=== PATIENT | female | born 1995 | race Two or more races ===

== ENCOUNTER 2016-11-08 14:48 | Emergency (ER) | payer SELFPAY ==
[~2016-11-08] VITALS: Ht 162.6 cm; Wt 63.5 kg
[2016-11-08 15:40] LABS: APPEARANCE,URINE CLOUDY; KETONES,URINE 1+ (NEGATIVE); LEUKOCYTE ESTERASE ,URINE 3+ (NEGATIVE); NITRITE,URINE NEGATIVE (NEGATIVE); PH,URINE 5 (4.5-8.0); PROTEIN,URINE 3+ (NEGATIVE); UROBILINOGEN,URINE NORMAL MG/DL (0.0-1.0)
[2016-11-08] MEDS ORDERED: Phenazopyridine 200mg tab ORAL ONE (15:45)
[2016-11-08 15:53] LABS: BACTERIA,URINE FEW /HPF; RBC,URINE 60-80 /HPF (0 - 2); SQUAMOUS EPITHELIAL CELL,UR FEW /LPF (NONE/OCC)
[2016-11-08 15:55] VITALS: BP 114/73
--- NOTE | 2016-11-08 15:58 | Emergency Room Report ---
History of Present Illness General Chief Complaint: Abdominal Pain Source: Patient Present Illness HPI 21 YO Female presents to the ED c/o Left flank pain and dysuria progressive x 3 days with chills. Denies , denies abdominal pain, diarrhea/ constipation. pt. reports recently helping her to move a heavy TV. denies trauma or fall otherwise. denies hematuria, states she is on her period right now. denies frequency, or N/V. pt has been taking oral medication Motrin for fevers and reports that they subside easily. Denies CP, Palpitations, LOC, AMS, dizziness, Changes in Vision, Sensation, paresthesias, or a sudden severe headache. Allergies: Coded Allergies: No Known Allergies (Unverified , 11/08/16) Patient History Past Medical History: see triage record Past Surgical History: none Now: No Reviewed Nursing Documentation: PMH: Agreed, PSxH: Agreed Nursing Documentation-PMH Past Medical History: No Stated History Review of Systems All Other Systems: negative except mentioned in HPI Physical Exam Vital Signs Date Time Temp Pulse Resp B/P Pulse Ox O2 Delivery O2 Flow Rate FiO2 11/08/16 14:57 99.7 102 20 114/73 97 Room Air Sp02 EP Interpretation: reviewed, abnormal - pt is tachycardic 102 BPM General Appearance: alert, GCS 15, non-toxic, mild distress Head: normocephalic, atraumatic Eyes: bilateral eye PERRL, bilateral eye normal inspection ENT: hearing grossly normal, normal pharynx, no angioedema, normal voice Neck: full range of motion, supple/symm/no masses Respiratory: chest non-tender, lungs clear, normal breath sounds, speaking full sentences Cardiovascular #1: regular rate, rhythm, no edema Gastrointestinal: normal bowel sounds, non tender, soft, no guarding, no rebound Rectal: deferred Genitourinary: normal inspection, CVA tenderness (L) Musculoskeletal: back normal, gait/station normal, normal range of motion, non- tender, no calf tenderness Neurologic: alert, oriented x3, responsive, motor strength/tone normal, sensory intact, speech normal Psychiatric: judgement/insight normal, memory normal, mood/affect normal Skin: normal color, no rash, warm/dry, well hydrated Medical Decision Making PA Attestation Dr. Anthony is my supervising Physician whom patient management has been discussed with. Diagnostic Impression: Primary Impression: Pyelonephritis ER Course Pt. presents to the ED c/o Left flank pain and dysuria progressive x 3 days with chills. *Pt currently on period. Ddx considered but are not limited to UTi , Pyelo, STI, Stone, Cystitis Vital signs: are WNL, pt. is afebrile H&PE are most consistent with UTI /pyelonephritis due to left CVA tenderness. ORDERS: - UA labs are attached : bacteria, wbc's and leukocytes present indicating infection. TNTC RBC's and blood, although pt. on period will r/o stone with US. -Urine HCG: negative -Renal US: negative for stone or obstruction, no hydro- per preliminary US report. ED INTERVENTIONS: -Rocephin 1 gram IV -Pyridium PO DISCHARGE: At this time pt. is stable for d/c to home. Will provide printed patient care instructions, and any necessary prescriptions. Care plan and follow up instructions have been discussed with the patient prior to discharge. Labs Test 11/08/16 15:00 Urine Color Red Urine Appearance Cloudy Urine pH 5 (4.5-8.0) Urine Specific [place] 1.015 (1.005-1.035) Urine Protein 3+ (NEGATIVE) Urine Glucose (UA) Negative (NEGATIVE) Urine Ketones 1+ (NEGATIVE) Urine Occult Blood 5+ (NEGATIVE) Urine Nitrite Negative (NEGATIVE) Urine Bilirubin Negative (NEGATIVE) Urine Urobilinogen Normal MG/DL (0.0-1.0) Urine Leukocyte Esterase 3+ (NEGATIVE) Urine RBC 60-80 /HPF (0 - 2) Urine WBC 5-10 /HPF (0 - 2) Urine Squamous Epithelial Cells Few /LPF (NONE/OCC) Urine Bacteria Few /HPF (NONE) Urine HCG, Qualitative Negative Last Vital Signs Date Time Temp Pulse Resp B/P Pulse Ox O2 Delivery O2 Flow Rate FiO2 11/08/16 14:57 99.7 102 20 114/73 97 Room Air Disposition: HOME, SELF-CARE Condition: Stable Scripts Acetaminophen* (TYLENOL EXTRA STRENGTH*) 500 Mg Tablet 500 MG ORAL Q6H Y for Mild Pain/Temp > 100.5, #20 TAB 0 Refills Prov: Ewelina Samuels P.A. 11/08/16 Phenazopyridine Hcl* (PYRIDIUM*) 100 Mg Tablet 100 MG ORAL THREE TIMES A DAY for 4 Days, #15 TAB Prov: Ewelina Samuels 11/08/16 Cephalexin* (KEFLEX*) 500 Mg Capsule 500 MG ORAL EVERY 12 HOURS for 7 Days, #14 CAP 0 Refills Prov: Ewelina Samuels 11/08/16 Referrals: NOT CHOSEN IPA/,REFERRING (PCP) Patient Instructions: Urinary Tract Infection, [id number] Additional Instructions: Take medications as directed. Follow up with PCP in 3-5 days Return sooner to ED if new symptoms occur, or current symptoms become worse. - Pyridium will cause your urine to change color (Red/[place]), this is a normal side effect of the medication. - Please note that this Emergency Department Report was dictated using [id number] process technician technology software, occasionally this can lead to erroneous entry secondary to interpretation by the dictation equipment. Ewelina Samuels November 08, 2016 15:58
[2016-11-08] MEDS ORDERED: cefTRIAXone 1 GM in NS 55 ML IVPB ONE (16:00)
[2016-11-08] MEDS ORDERED: CEPHALEXIN500 MG ORAL (17:15)
[2016-11-08] MEDS ORDERED: TYLENOL EXTRA500 MG ORAL (17:15)
[2016-11-08] MEDS ORDERED: PHENAZOPYRIDIN100 MG ORAL (17:15)
[2016-11-08 17:45] VITALS: BP 116/75
[2016-11-08 17:47] VITALS: BP 116/75
--- NOTE | 2016-11-09 14:03 | Diagnostic Imaging Report ---
Indication:Elevated Bun and Creatinine. Technique: Grayscale and duplex Doppler imaging of the kidneys performed. Comparison: None Findings: The size, contour, and echogenicity of both kidneys are within normal limits. The right kidney is 12.3 cm. The left kidney measures 10 CM which is small. There is no hydronephrosis. The IVC and urinary bladder are unremarkable. Impression: Negative exam
== END 2016-11-08 17:48 | disposition home or self-care (01) ==
LOC: EMR 15:50
DX: N12 Tubulo-interstitial nephritis, not specified as acute or chronic (principal)
CPT/HCPCS: 76775; 81003; 81025; 96374; 96375; 99284; J0696